=== PATIENT | male | born 1980 | race Caucasian/White ===

== ENCOUNTER 2018-06-14 20:24 | Emergency (ER) | payer OTHER ==
--- NOTE | 2018-06-14 21:44 | ED ---
Headache - History Of Current Complaint Chief Complaint: EDHeadache Stated Complaint: HEADACHE, COUGH, NEAR SYNCOPE Time Seen by Provider: 06/14/18 21:41 Hx Obtained From: Patient - Allergies/Home Medications Allergies/Adverse Reactions: Allergies Allergy/AdvReac Type Severity Reaction Status Date / Time No Known Allergies Allergy Verified 06/14/18 20:28 PMH/Surg Hx/FS Hx/Imm Hx Previously Healthy: Yes Opthamlomology History: Denies: Hx Legally Blind Neurological History: Denies: Hx Dementia Infectious Disease History: No Infectious Disease History: Denies: Traveled Outside the [place] in Last 30 Days - Social History Occupation: Employed Part-time Lives: With Family Hx Substance Use: No Substance Use Type: Reports: None Physical Exam Triage Information Reviewed: Yes Vital Signs On Initial Exam: Initial Vitals Temp Pulse Resp BP Pulse Ox 98.3 F 79 16 158/93 96 06/14/18 20:26 06/14/18 20:26 06/14/18 20:26 06/14/18 20:26 06/14/18 20:26 Vital Signs Reviewed: Yes Diagnostics - Vital Signs Vital Signs Temp Pulse Resp BP Pulse Ox 06/14/18 20:26 98.3 F 79 16 158/93 96 - Laboratory Lab Statement: Any lab studies that have been ordered have been reviewed, and results considered in the medical decision making process. Discharge - Discharge Plan Referrals: Pa Oakley MD [Primary Care Provider] - - Attestation Statements Document Initiated by Scribe: Yes Documenting Scribe: Jaime Kang Provider For Whom Scribe is Documenting (Include Credential): Dr. Cristian Pineda MD Scribe Attestation: Jaime Stein, scribed for Dr. Cristian Pineda MD on 06/14/18 at 2144.
--- NOTE | 2018-06-14 22:04 | ED ---
Respiratory - HPI Summary HPI Summary: A 38 y/o M presents to ED with c/o dry cough onset over two weeks ago. He had a severe coughing fit tonight and came in for evaluation. Pt was diagnosed with bronchitis and given ABX about two weeks ago, but he states the cough never resolved. He has chest congestion, but the cough is unproductive. The cough is worse at night. He's limited to taking short and shallow breaths, otherwise he' ll have a coughing fit. Associated sx: lightheadedness, near-syncope, subjective fever at nighttime. He denies recent travel. He is a non-smoker. PMHx : asthma. He has an albuterol inhaler, which he's been using regularly since onset of sx. - History of Current Complaint Chief Complaint: EDHeadache Stated Complaint: HEADACHE, COUGH, NEAR SYNCOPE Time Seen by Provider: 06/14/18 21:41 Hx Obtained From: Patient Onset/Duration: Lasting Weeks, Still Present Timing: Constant Initial Severity: Moderate Current Severity: Mild Pain Intensity: 3 Character: Cough (Nonproductive), Dyspnea at Rest Sputum Amount: None Aggravating Factor(s): Deep Breaths, Other - Nighttime Alleviating Factor(s): Nothing Associated Signs and Symptoms: Fever, URI - bronchitis - Allergy/Home Medications Allergies/Adverse Reactions: Allergies Allergy/AdvReac Type Severity Reaction Status Date / Time No Known Allergies Allergy Verified 06/14/18 20:28 PMH/Surg Hx/FS Hx/Imm Hx Previously Healthy: Yes Respiratory History: Reports: Hx Asthma Opthamlomology History: Denies: Hx Legally Blind EENT History: Denies: Hx Deafness Neurological History: Denies: Hx Dementia Infectious Disease History: No Infectious Disease History: Denies: Traveled Outside the [place] in Last 30 Days - Family History Known Family History: Positive: Unknown - Social History Occupation: Employed Full-time Lives: With Family Hx Substance Use: No Substance Use Type: Reports: None Review of Systems Positive: Fever Positive: Cough Neurological: Other - pos: lightheadedness Positive: Syncope - near-syncope All Other Systems Reviewed And Are Negative: Yes Physical Exam - Summary Physical Exam Summary: Appearance: Well-appearing, Well-nourished, lying in bed comfortably Skin: Warm, dry, no obvious rash Eyes: sclera anicteric, no conjunctival pallor ENT: mucous membranes moist, pharynx appears normal Neck: Supple, nontender Respiratory: wheezing, prolonged expiration on forced expiration Cardiovascular: Normal S1, S2. No murmurs. Normal distal pulses in tibial and radial bilaterally. Abdomen: Soft, nontender, normal active bowel sounds present Musculoskeletal: Normal, Strength/ROM Intact Neurological: A&Ox3, awake and alert, mentation is normal, speech is fluent and appropriate Psychiatric: affect is normal, does not appear anxious or depressed Triage Information Reviewed: Yes Vital Signs On Initial Exam: Initial Vitals Temp Pulse Resp BP Pulse Ox 98.3 F 79 16 158/93 96 06/14/18 20:26 06/14/18 20:26 06/14/18 20:26 06/14/18 20:26 06/14/18 20:26 Vital Signs Reviewed: Yes Diagnostics - Vital Signs Vital Signs Temp Pulse Resp BP Pulse Ox 06/14/18 20:26 98.3 F 79 16 158/93 96 - Laboratory Lab Statement: Any lab studies that have been ordered have been reviewed, and results considered in the medical decision making process. Disposition - Course Course Of Treatment: Pt is a 38 y/o M presenting with dry cough onset over two weeks ago. He had a severe coughing fit tonight causing lightheadedness and near -syncope. Pt was diagnosed with bronchitis and given ABX about two weeks ago, but he states the cough never resolved. He has chest congestion, but the cough is unproductive. The cough is worse at night. He's limited to taking short and shallow breaths. - Diagnoses Provider Diagnoses: Bronchitis with bronchospasm Discharge - Sign-Out/Discharge Documenting (check all that apply): Patient Departure - D/C - Discharge Plan Condition: Stable Disposition: HOME Prescriptions: Hydrocodone/Chlorphen P-Stirex [Tussionex Pennkinetic Susp] 5 ml PO BEDTIME PRN #60 ml MDD 10 ml PRN Reason: Cough predniSONE [Prednisone 20 MG TAB] 40 mg PO DAILY 5 Days #10 tablet Patient Education Materials: Acute Bronchitis (ED), Bronchospasm (ED) Referrals: Pa Oakley MD [Primary Care Provider] - - Billing Disposition and Condition Condition: STABLE Disposition: Home - Attestation Statements Document Initiated by Scribe: Yes Documenting Scribe: [facility] Provider For Whom Scribe is Documenting (Include Credential): Dr. Cristian Pineda MD Scribe Attestation: I, Jaime Kang, annaed for Dr. Cristian Pineda MD on 06/15/18 at 0111. Scribe Documentation Reviewed: Yes Provider Attestation: The documentation as recorded by the esther, Jaime Kang accurately reflects the service I personally performed and the decisions made by me, Dr. Cristian Pineda MD Status of Scribe Document: Viewed
[2018-06-14 22:06] VITALS: BP 126/97
[2018-06-14] MEDS ORDERED: HYDROcodone/ACETAMIN 5-325 MG* 1 TAB PO ONE (22:07)
[2018-06-14] MEDS ORDERED: predniSONE TAB* 20 MG PO ONE (22:07)
== END 2018-06-14 22:30 | disposition home or self-care (01) ==
LOC: ED 20:24
DX: J45.909 Unspecified asthma, uncomplicated (principal)
CPT/HCPCS: 99282; J7512